=== PATIENT | female | born 1980 | race Hispanic/Latino ===

== ENCOUNTER 2023-03-30 16:59 | Emergency (ER) | payer OTHER ==
[~2023-03-30] VITALS: Ht 152.4 cm; Wt 61.2 kg
[2023-03-30 17:06] VITALS: BP 134/84; PULSE 71; RESP 16; O2SAT 99
== END 2023-03-30 21:29 | disposition left against medical advice (07) ==
LOC: EDH 16:59
DX: R20.0 Anesthesia of skin (principal); Z53.21 Procedure and treatment not carried out due to patient leaving prior to being seen by health care provider
CPT/HCPCS: 99281